=== PATIENT | female | born 1990 | race Two or more races ===

== ENCOUNTER 2018-05-20 16:43 | Emergency (ER) | payer OTHER ==
[~2018-05-20] VITALS: Ht 157.5 cm; Wt 77.1 kg
[~2018-05-20 16:43] MED LIST: ANTOXYBENA RIGHTEAR; Amoxicillin500 MG PO; MULVITMINE PO; NAPR500 PO
[2018-05-20] MEDS ORDERED: GLAUCOMA EYE DROPS (16:55)
== END 2018-05-20 17:40 | disposition home or self-care (01) ==
LOC: ER 16:43
DX: S90.31XA Contusion of right foot, initial encounter (principal); F17.200 Nicotine dependence, unspecified, uncomplicated; X58.XXXA Exposure to other specified factors, initial encounter; Y93.41 Activity, dancing
CPT/HCPCS: 73630; 99283-25

== ENCOUNTER → 2020-06-30 | Outpatient (CLI) | payer OTHER ==
[~2020-06-30] MED LIST changes: +GLAUCOMA EYE DROPS
== END | disposition home or self-care (01) ==
LOC: LAB SHORT 14:59 → LAB 14:59
DX: R82.998 Other abnormal findings in urine (principal)
CPT/HCPCS: 87086

== ENCOUNTER → 2020-07-03 | Outpatient (CLI) | payer OTHER ==
[2020-07-03 14:14] LABS: Candida species (DNA Probe) Negative (NEGATIVE); G. vaginalis (DNA Probe) Negative (NEGATIVE); T. vaginalis (DNA Probe) Negative (NEGATIVE)
== END | disposition home or self-care (01) ==
LOC: LAB 09:28 → LAB SHORT 09:28
PROVIDERS: Student in an Organized Health Care Education/Training Program
DX: R10.2 Pelvic and perineal pain (principal)
CPT/HCPCS: 87480; 87510; 87660

== ENCOUNTER → 2020-07-07 | Outpatient (CLI) | payer OTHER ==
[2020-07-10 06:10] LABS: CHLAMYDIA TRACHOMATIS, NAA Negative (Negative); HPV 16 Negative (Negative); HPV 18 Negative (Negative); HPV OTHER HR TYPES Negative (Negative); NEISSERIA GONORRHOEAE, NAA Negative (Negative)
== END | disposition home or self-care (01) ==
LOC: LAB SHORT 13:57 → LAB 13:57
PROVIDERS: Student in an Organized Health Care Education/Training Program
DX: R10.2 Pelvic and perineal pain (principal)
CPT/HCPCS: 87491; 87591; 87624; 88175

== ENCOUNTER 2022-07-16 05:07 | Emergency (ER) | payer OTHER ==
[~2022-07-16] VITALS: Ht 157.5 cm; Wt 79.8 kg
[2022-07-16] MEDS ORDERED: BRIMONIDINE TART5 ML BOTHEYES (05:22)
[2022-07-16] MEDS ORDERED: PRED FORTE5 M1 BOTHEYES (05:22)
== END 2022-07-16 07:15 | disposition home or self-care (01) ==
LOC: ER 05:07
DX: R07.9 Chest pain, unspecified (principal); R06.02 Shortness of breath
CPT/HCPCS: 71046; 93005; 93010; A9270; J1885